=== PATIENT | female | born 1990 | race Hispanic/Latino ===

== ENCOUNTER 2018-02-28 04:17 | Inpatient (IN) | payer BC ==
[2018-02-27 14:17] LABS: RPR Titer ND
[2018-02-27 14:20] LABS: Absolute Lymphocytes (CBC) 1.5 K/uL (0.7-4.9); Absolute Monocytes 0.6 K/uL (0.1-1.3); Absolute Neutrophil 5.9 K/uL (1.8-8.0); Basophils % 0.2 % (0-1.3); Eosinophils % 2.3 % (0-4.4); Hematocrit 32.4 % (36.0-45.0); Lymphocytes % 18.2 % (15.3-44.8); MPV 9.9 fL (7.6-11.3); Monocytes % 6.9 % (3.3-12.3); RBC Red Blood Cell Count 4.39 M/uL (3.86-4.86)
[2018-02-27 14:23] LABS: Protime INR 0.93
[2018-02-27 14:42] LABS: Urine Appearance CLEAR; Urine Bilirubin NEGATIVE (NEG); Urine Blood NEGATIVE (NEG); Urine Color YELLOW; Urine Glucose NEGATIVE (NEG); Urine Protein 1+ (NEG); Urine pH 7.5 (5.0-7.0)
[2018-02-27 14:58] LABS: Urine Bacteria <20 /HPF (<20); Urine RBC <5 /HPF (NONE SEEN)
[2018-02-27 14:59] LABS: Urine Culture Reflex Order NOT NEEDED
[~2018-02-28 04:17] MED LIST: CEFAZOLIN 2GM (PREMIX IV) 2 GM/50 ML BAG IVPB SCH
[2018-02-28] MEDS ORDERED: Ringers Lactate 1,000 ML IV PRN (04:21)
[2018-02-28] MEDS ORDERED: NA CIT/CITRIC AC 30 ML ORAL UDC PO ONE (04:28)
[2018-02-28 04:56] VITALS: BMI 28.5
[2018-02-28] MEDS ORDERED: METOCLOPRAMIDE 10 MG/2mL INJ IV SCH (05:00)
[2018-02-28] MEDS ORDERED: Ringers Lactate 1,000 ML IV SCH (05:00)
[2018-02-28] MEDS ORDERED: METHYLERGONOVINE 0.2MG/ML AMP IM ONE (05:13)
[2018-02-28] MEDS ORDERED: CARBOPROST TROME 250 MCG/ML IM ONE (05:13)
[2018-02-28] MEDS ORDERED: CEFAZOLIN 2GM (PREMIX IV) 2 GM/50 ML BAG ONE (05:26)
[2018-02-28] MEDS: D5LR 1,000 ML with OXYTOCIN 20 UNIT IV SCH ×4 (06:15→13:25)
[2018-02-28] MEDS ORDERED: MORPHINE SULFATE/PF 1 MG/ML (10 ML AMP) ONE (07:30)
[2018-02-28] MEDS ORDERED: LIDOCAINE 1% MPF 5 ML VIAL ONE (07:31)
[2018-02-28] MEDS ORDERED: OXYTOCIN 10 UNIT/ML ML IV ONE (07:31)
[2018-02-28] MEDS ORDERED: BUPIVACAINE 0.75% (PF) 2 ML SP ONE (07:32)
[2018-02-28] MEDS ORDERED: NS 0.9% VIAL 10 ML ONE (08:01)
[2018-02-28] MEDS ORDERED: Phenylephrine HCl 10 MG/ML 1 ML VIAL ONE (08:01)
[2018-02-28] MEDS ORDERED: DIPHENHYDRAMINE 25 MG TAB/CAP PO PRN (08:32)
[2018-02-28] MEDS ORDERED: ONDANSETRON 4 MG/2 ML VIAL IV PRN (08:32)
[2018-02-28] MEDS ORDERED: ACETAMINOPHEN 500 MG TAB PO PRN ×2 (08:32)
[2018-02-28] MEDS ORDERED: Oxycodone HCl/Acetaminophen 1 TAB TAB PO PRN ×2 (08:32)
[2018-02-28] MEDS ORDERED: ONDANSETRON 4 MG (ODT) TAB PO PRN (08:32)
[2018-02-28] MEDS ORDERED: BISACODYL 10 MG RECTAL SUPP RECT PRN (08:32)
[2018-02-28] MEDS ORDERED: KETOROLAC 30 MG/ML INJ IV PRN (08:32)
[2018-02-28] MEDS ORDERED: IBUPROFEN 200 MG TAB PO PRN (08:32)
[2018-02-28] MEDS ORDERED: OXYTOCIN/LR 20 UNIT/1,000 ML BAG IV SCH (09:00)
[2018-02-28] MEDS ORDERED: FAMOTIDINE 20 MG/2 ML VIAL IV SCH (09:00)
[2018-02-28] MEDS ORDERED: DIPHENHYDRAMINE 50 MG/ML VIAL IV PRN (09:15)
[2018-02-28] MEDS ORDERED: PROMETHAZINE 25 MG/ML VIAL IV PRN (09:18)
[2018-02-28] MEDS ORDERED: NALOXONE 0.4 MG/ML VIAL IV PRN (09:19)
[2018-02-28] MEDS ORDERED: PROMETHAZINE 25 MG/ML VIAL ONE (09:24)
--- NOTE | 2018-02-28 15:09 | PN ---
Full preoperative counseling this morning. Again offered if she wishes to cancel the surgery an d wait, but the patient says that she is here and she wishes to proceed. Counseled with the patient and numerous family members present. ELIEL/ASMITA Voice ID: [id number] Report ID: [id number]
--- NOTE | 2018-02-28 15:12 | PREOPHP ---
Date of Admission: 02/28/2018 Tomasa Rodriguez is a 27-year-old 2, para 1, for repeat section. Infection, blood loss, anesthetic complications, injury to bladder, bowel, ureter, postoperative complications, clots in le gs, and pneumonia discussed. The patient knows fully well this does not constitute all the possible problems that could occur during or following surgery. Has a history of thyroid cancer in the mother and a history of gallstones. Patient is on thyroid 0.112 mg. No allergies. Does not smoke. HEENT clear. Pupils equal, round, and reactive to light and accommodation. Conjunctivae well perfused. No oral, lingual, or buccal lesions. Chest and lungs clear. Heart without murmurs, thrills, heaves, or rubs. Breasts not examined. Abdomen is term size. Baby is of 8 pound or greater range. Baby i s vertex. Cervix is fingertip. Extremities are clear without edema, cyanosis, or clubbing. The pat ient has +2 protein in the urine today. No symptoms of bladder infection. I think it is probably a contamination. We will see what the urine shows when she gets the specimen either later today or chyna orrow at the hospital. She will be given antibiotics of course and we will see if that if this reall y constitutes an infection or whether it is just contamination. ELIEL/ASMITA Voice ID: [id number]
[2018-02-28] MEDS ORDERED: CEFAZOLIN 1GM (PREMIX IV) 1 GM/50 ML BAG IV ONE (16:00)
--- NOTE | 2018-02-28 18:45 | OP ---
Surgeon: Fernando Watters MD A 28-year-old 2, para 1, 39 weeks 1 day, for repeat section. Infection, blood loss, anesthetic complications, injury to bladder, bowel, ureter, postoperative complications, clots in le gs, pneumonia discussed. The patient knows fully well this does not constitute all the possible prob lems that could occur during or following surgery. Anesthesia: Spinal block. Pot Fluxer Surgeon: Giuseppe Clark MD Description Of Procedure: Time-out performed. Pfannenstiel incision created over the previous incis ion. The incision was carried to the fascia. The fascia was incised and incision carried transverse ly bilaterally. Anterior fascial plane was developed with both blunt and sharp dissection. The unde rlying peritoneum entered bluntly. Low-transverse uterine incision created. A 7-pound 12-ounce male infant was delivered without difficulties. Apgars 9 and 9. Placenta manually removed. Cervical os dilated with ring clamp. The uterus was mildly hypotonic, 0.2 mg of Methergine IM. Estimated blood loss during the procedure 1000 cc or less. Uterus closed with a running-locked stitch of 1 chromic. No further bleeding was seen. Gutters cleared of clot and blood. Uterus was replaced into peritone al cavity. Again inspection of suture line showed no further bleeding. Muscles closed with 0 Vicryl interrupted sutures. Fascia closed with 1 Vicryl running locked running from either angle to the mi dline. Subcutaneous tissue was closed with 2-0 plain. Absorbable marissa placed and then metal stap les. The patient had been given 2 g of Ancef preop, tolerated all procedures well. She was transfer red back to her room in good condition. Final Diagnoses: Term intrauterine 39 weeks 1 day, repeat section, spinal block a nesthesia, mild uterine hypotonus. NBC/MODL Voice ID: [id number] Report ID: [id number]
[2018-02-28 21:26] LABS: RPR (Rapid Plasma Reagin) NON-REACT (NON-REACT)
--- NOTE | 2018-03-01 07:34 | PN ---
Tomasa Rodriguez, a 27-year-old female who underwent repeat section yesterday. H and H with exp ected change. Vital signs are all normal. Lochia is normal. The patient has already ambulated. We will discontinue Miranda and IV. The patient has apparently not received her Tdap immunization. Full y discussed and suggested again today. The patient will be dismissed tomorrow when eligible. We federica l write out a prescription for pain medicines which she knows contain narcotics and she may choose to take Motrin instead. No post epidural problems. ELIEL/ASMITA Voice ID: [id number] Report ID: [id number]
--- NOTE | 2018-03-01 07:49 | DS ---
Hospital Course: Tomasa Rodriguez, 27-year-old female, underwent repeat section 39 weeks 1 day, 7-pound 12-ounce male infant, Apgars 9 and 9. Spinal block anesthesia. 1000 cc or less blood loss. Mild uterine , 0.2 mg of Methergine IM. Ancef for prophylaxis. Postoperatively, did mylene te well. Afebrile, ambulating and voiding. Lochia is normal. H and H with minimal or no change. S he will be dismissed tomorrow morning to report back to my office in 1 week for followup. To report any temperature elevation of 100 degrees or greater, severe pain, heavy bleeding, or any other type o f abnormalities. Dismissed with tramadol for analgesia. She may choose to take Motrin instead. Tda p has been suggested several times during the . Final Diagnoses: Term intrauterine at 39 weeks 1 day, repeat section, spinal bloc k anesthesia. Mild uterine . History of thyroid cancer. ELIEL/ASMITA Voice ID: [id number] Report ID: [id number]
[2018-03-01] MEDS ORDERED: MAGNESIUM HYDROXIDE 8% 30 ML PO PRN (08:32)
[2018-03-02 10:06] VITALS: BP 135/81; TEMP 98.3
[2018-03-02 16:42] LABS: HBsAG Nonreactive (Nonreactive)
== END 2018-03-02 10:15 | disposition home or self-care (01) | DRG 788 ==
LOC: 2ND-WC 04:17
PROVIDERS: ADMIT Specialist; ATTEND Specialist
PROC: 10D00Z1 Extraction of Products of Conception, Low, Open Approach (ICD-10-PCS; principal; 2018-02-28 07:30)
DX: O34.211 Maternal care for low transverse scar from previous cesarean delivery (principal); O62.2 Other uterine inertia; Z3A.39 39 weeks gestation of pregnancy; Z37.0 Single live birth; Z85.850 Personal history of malignant neoplasm of thyroid
CPT/HCPCS: 36415; 81001; 85014; 85025; 85610; 85730; 86592; 86850; 86900; 86901; 87340; 88307; J0690; J2210; J2370; J2550; J2590; J2765